=== PATIENT | female | born 1960 | race American Indian/Alaskan Native ===

== ENCOUNTER 2018-06-22 13:39 | Emergency (ER) | payer BC ==
[2018-06-22 13:39] VITALS: BMI 28.7
[2018-06-22 13:45] VITALS: RESP 18; O2SAT 100
--- NOTE | 2018-06-22 14:05 | C.PDOC ---
History Of Present Illness 58 year old female patient PMHx of breast cancer and PSHx of mastectomy on right breast brought by EMS to the ER because she hit her head on a automatic lotion dispenser [employer]. Patient states she was scheduled for jury duty today and she somehow hit her head on the lotion dispenser. Patient notes she had many CT and MRI's done on her head due to her excessive forgetfulness. Patient denies fever, chills, dizziness, LOC, and photophobia. Time Seen by Provider: 06/22/18 13:44 Chief Complaint (Nursing): Headache History Per: Patient History/Exam Limitations: no limitations Onset/Duration Of Symptoms: Other (GROUND WORKER) Past Medical History Reviewed: Historical Data, Nursing Documentation, Vital Signs Vital Signs: Last Vital Signs Temp 98.5 F 06/22/18 15:23 Pulse 66 06/22/18 15:23 Resp 18 06/22/18 15:23 BP 147/75 06/22/18 15:23 Pulse Ox 100 06/22/18 15:23 - Medical History Other PMH: breast cancer Other Surgeries: mastectomy (right breast) Family History: States: Unknown Family Hx - Social History Hx Alcohol Use: No Hx Substance Use: No - Immunization History Hx Tetanus Toxoid Vaccination: Yes Hx Influenza Vaccination: Yes Hx Pneumococcal Vaccination: Yes Review Of Systems Except As Marked, All Systems Reviewed And Found Negative. Constitutional: Positive for: Other (hit head on lotion dispenser). Negative for: Fever, Chills Eyes: Negative for: Other (photophobia ) Neurological: Negative for: Dizziness, Other (LOC) Physical Exam - Physical Exam Appears: Well, Non-toxic, No Acute Distress Skin: Normal Color, Warm, Dry Head: Atraumatic, Normacephalic, No Abrasion, No Laceration Eye(s): bilateral: Normal Inspection, PERRL, EOMI Neck: Normal ROM, Supple Chest: Symmetrical, No Deformity Cardiovascular: Rhythm Regular Respiratory: Normal Breath Sounds Gastrointestinal/Abdominal: Soft, No Tenderness Back: No CVA Tenderness Extremity: Normal ROM (x4) Neurological/Psych: Oriented x3, Normal Speech, Normal Motor (good strength), Normal Sensation, Other (slow talking and missed nose on [id number] test, but patient says is nml) Gait: Steady ED Course And Treatment O2 Sat by Pulse Oximetry: 100 (RA) Pulse Ox Interpretation: Normal - CT Scan/US No standard instances Other Rad Studies (CT/US): Read By Radiologist, Radiology Report Reviewed CT/US Interpretation: FINDINGS: HEMORRHAGE: No intracranial hemorrhage. BRAIN : Reese-white matter differentiation is preserved. There is no mass, mass effect or abnormal extra-axial fluid collection. There is no territorial infarction. The midline sagittal structures are normal. VENTRICLES: The ventricles are normal in size, shape and configuration. CALVARIUM: There is no calvarial fracture or extracranial soft tissue swelling. PARANASAL SINUSES: Predominantly clear. MASTOID AIR CELLS: Predominantly clear. OTHER FINDINGS : None. IMPRESSION: No acute intracranial abnormality. 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 - Scribe Statement The provider has reviewed the documentation as recorded by the Moriah Mares Do All medical record entries made by the Scribe were at my direction and personally dictated by me. I have reviewed the chart and agree that the record accurately reflects my personal performance of the history, physical exam, medical decision making, and the department course for this patient. I have also personally directed, reviewed, and agree with the discharge instructions and disposition.
--- NOTE | 2018-06-22 14:50 | CT ---
Date of service: 06/22/2018 PROCEDURE: CT HEAD WITHOUT CONTRAST. HISTORY: Fall COMPARISON: None available. TECHNIQUE: Axial computed tomography images were obtained through the head/brain without intravenous contrast. Radiation dose: Total exam DLP = 795.07 mGy-cm. This CT exam was performed using one or more of the following dose reduction techniques: Automated exposure control, adjustment of the mA and/or kV according to patient size, and/or use of iterative reconstruction technique. FINDINGS: HEMORRHAGE: No intracranial hemorrhage. BRAIN: Reese-white matter differentiation is preserved. There is no mass, mass effect or abnormal extra-axial fluid collection. There is no territorial infarction. The midline sagittal structures are normal. VENTRICLES: The ventricles are normal in size, shape and configuration. CALVARIUM: There is no calvarial fracture or extracranial soft tissue swelling. PARANASAL SINUSES: Predominantly clear. MASTOID AIR CELLS: Predominantly clear. OTHER FINDINGS: None. IMPRESSION: No acute intracranial abnormality.
[2018-06-22 15:25] VITALS: BP 147/75; PULSE 66; TEMP 98.5
== END 2018-06-22 15:25 | disposition home or self-care (01) ==
LOC: C.ER 13:39
DX: S09.90XA Unspecified injury of head, initial encounter (principal); W22.8XXA Striking against or struck by other objects, initial encounter